=== PATIENT | male | born 1945 | race Caucasian/White ===

== ENCOUNTER → 2016-09-03 | Outpatient (CLI) | payer MEDICARE, BC | END | disposition home or self-care (01) | LOC: PCVCIMAG 15:45 | PROVIDERS: ATTEND Internal Medicine Cardiovascular Disease | DX: R94.31 Abnormal electrocardiogram [ECG] [EKG] (principal); E78.00 Pure hypercholesterolemia, unspecified | CPT/HCPCS: 93306 ==

== ENCOUNTER → 2016-09-14 | Outpatient (CLI) | payer MEDICARE, BC ==
[~2016-09-14] MED LIST: REGADENOSON 0.4 MG/5 ML DISP.SYRIN. IV ONE
== END | disposition home or self-care (01) ==
LOC: PCVCIMAG 08:19
PROVIDERS: ATTEND Internal Medicine Cardiovascular Disease
DX: I65.23 Occlusion and stenosis of bilateral carotid arteries (principal); R09.89 Other specified symptoms and signs involving the circulatory and respiratory systems; R06.00 Dyspnea, unspecified; R42 Dizziness and giddiness
CPT/HCPCS: 78452; 93017; 93880; A9500; J2785

== ENCOUNTER → 2019-05-09 | Outpatient (CLI) | payer MEDICARE, BC ==
--- NOTE | 2019-05-09 13:00 | PCVCIMAG ---
APPROVED REPORT Imaging Protocol: Rest Tc-99m/Stress Tc-99m 1 day Study performed: 05/09/2019 09:39:24 Indication: Chest pain, SVT Patient Location: Out-Patient Stress Nurse: Nelly Light RN, Judit García RN [place] Tech:Pennie White [facility] Ht: 5 ft 9 in Wt: 190 lbs BSA: 2.02 m2 HR: 60 bpm BP: 112/70 mmHg BMI: 28.0 Rhythm: Pacemaker Medical History Medical History: Pacemaker Medications: Aspirin, Statin, Cardezim Allergies: No known drug allergies Cardiac Risk Factors: Age Pretest Chest Pain Characteristics: No chest pain Exercise History: Physically active Resting Data Rest SPECT myocardial perfusion imaging was performed in supine position 45 minutes following the intravenous injection of 10 mCi of Tc-99m Sestamibi. Time of rest injection: 0910 Date: 05/09/2019 Administration Route: IV Administration Site: Right AC Pharmacologic Stress Pharmacologic stress test was performed by injecting Regadenoson 0.4 mg IV push over 10-15 seconds immediately followed by the intravenous injection of 31.9 mCi of Tc-99m Sestamibi. Time of stress injection: 1020 Date: 05/09/2019 Administration Route: IV Administration Site: Right AC Gated Stress SPECT was performed 45 minutes after stress injection. The images were gated to evaluate regional wall motion and calculate left ventricular ejection fraction. Stress Test Details Stress Test: Pharmacologic stress was paired with low level exercise. Reason for pharmacologic stress test: physical limitation, pacemaker. HRMax Heart Rate (APMHR): 144 bpm Resting HR: 60 bpmTarget HR (85% APMHR): 122 bpm Max HR Achieved: 85 bpm % of APMHR: 59 Recovery HR: 63 bpm BP Resting BP: 112/70 mmHg Max BP: 149/68 mmHg Recovery BP: 132/67 mmHg ECG Resting ECG: Sinus Rhythm Stress ECG: Sinus Rhythm, LBBB ST Change: Nondiagnostic V-pacing or LBBB Arrhythmia: PVC's Recovery ECG: Sinus Rhythm Recovery ST Change: Normal Recovery ST Deviation: 0 mm Recovery Arrhythmia: None Clinical Reason for Termination: Completed protocol Stress Symptoms: Dyspnea, Diaphoresis Exercise duration: 4 min 00 sec Exercise capacity: 1.6 METs Symptoms resolved with caffeine. Stress ECG Conclusion Clinical: Non-ischemic ECG: Non-ischemic Study Quality Study: Good Study Data Post stress, the left ventricular ejection was 64%.. SSS: 0 SRS: 0 SDS: 0 TID = 0.93. Perfusion No evidence of stress induced ischemia or prior myocardial infarction. Wall Motion Normal left ventricular size and function with no regional wall motion abnormalities. Nuclear Conclusion No evidence of stress induced ischemia or prior myocardial infarction. Normal left ventricular size and function with no regional wall motion abnormalities. Post stress, the left ventricular ejection was 64%. No change since prior study dated August 2016. Interpreted by: Tadeo Mcknight MD Electronically Approved: 05/09/2019 12:54:07 <Conclusion> Clinical: Non-ischemic ECG: Non-ischemic
== END | disposition home or self-care (01) ==
LOC: PCVCIMAG 08:53
PROVIDERS: ATTEND Internal Medicine Cardiovascular Disease
DX: I47.1 Supraventricular tachycardia (principal); E03.9 Hypothyroidism, unspecified; Z95.0 Presence of cardiac pacemaker
CPT/HCPCS: 78452; 93017; A9500; J2785